=== PATIENT | male | born 1985 | race Two or more races ===

== ENCOUNTER 2025-04-19 07:30 | Inpatient (IN) | payer SELFPAY ==
[~2025-04-19] VITALS: Ht 185.4 cm; Wt 73.4 kg
--- NOTE | 2025-04-19 08:53 | ED.PDOC ---
History of Present Illness(SKN HPI Comments This is a 40 year-old male who presents to the ED with a chief complaint of wound to suprapubic abdominal region S/P insect bite X8 days ago. Patient reports a raised bump with pain, swelling as redness. Patient states symptoms have worsened over the past X3 days. Patient has no further complaints at this time and otherwise denies further associated symptoms of chest pain, abdominal pain, N/V, fever, or chills. Chief Complaint: Insect Bite Time Seen by MD: 08:45 History of Present Illness: Medications, Allergies Allergies: Uncoded Allergies: ANTS (Adverse Reaction, Unknown, 04/19/25) Information Source: Patient Mode of Arrival: Ambulatory Severity: Moderate Timing: Days Duration: Since onset Location: Abdomen Mechanism: Insect Wound Type: Puncture Associated Signs and Symptoms: Redness, Swelling Past Medical History PAST MEDICAL HISTORY: Denies Surgical History: Denies all surgeries Family History Family History: Reviewed,noncontributory to illness, No family hx of Cancer, No family hx of DM, No family hx of Heart charly, No family hx of HTN, No family hx ofKidney charly, No family hx of Liver charly, No family hx of Lung charly, No family hx of Stroke Social History Smoker: Non-Smoker Alcohol: Denies ETOH Use Drugs: Denies Drug Use Lives In: Home Constitutional: denies: chills, diaphoresis, fatigue, fever, malaise, sweats, weakness, others EENTM: denies: blurred vision, double vision, ear bleeding, ear discharge, ear drainage, ear pain, ear ringing, eye pain, eye redness, hearing loss, mouth pain, mouth swelling, nasal discharge, nose bleeding, nose congestion, nose pain, photophobia, tearing, throat pain, throat swelling, voice changes, others Respiratory: denies: cough, hemoptysis, orthopnea, SOB at rest, shortness of breath, SOB with excertion, stridor, wheezing, others Cardiovascular: denies: chest pain, dizzy spells, diaphoresis, Dyspnea on exertion, edema, irregular heart beat, left arm pain, lightheadedness, palpitations, PND, syncope, others Gastrointestinal: denies: abdomen distended, abdominal pain, blood streaked bowels, constipated, diarrhea, dysphagia, difficulty swallowing, hematemesis, melena, nausea, poor appetite, poor fluid intake, rectal bleeding, rectal pain, vomiting, others Genitourinary: denies: burning, dysuria, flank pain, frequency, hematuria, incontinence, penile discharge, penile sore, pain, testicle pain, testicle swel ling, urgency, others Neurological: denies: dizziness, fainting, headache, left sided numbness, left sided weakness, numbness, paresthesia, pre-existing deficit, right sided numbness, right sided weakness, seizure, speech problems, tingling, tremors, weakness, others Musculoskeletal: denies: back pain, gout, joint pain, joint swelling, muscle pain, muscle stiffness, neck pain, others Integumetry: reports: wounds, others (swelling, redness ); denies: bruises, change in color, change in hair/nails, dryness, laceration, lesions, lumps, rash Allergic/Immunocompromised: denies: Difficulty Healing, Frequent Infections, Hives, Itching, others Hematologic/Lymphatic: denies: anemia, blood clots, easy bleeding, easy bruising, swollen glands, others Endocrine: denies: excessive hunger, excessive sweating, excessive thirst, excessive urination, flushing, intolerance to cold, intolerance to heat, unexplained weight gain, unexplained weight loss, others Psychiatric: denies: anxiety, bipolar disorder, depression, hopeless, panic disorder, schizophrenia, sleepless, suicidal, others All Other Systems: Reviewed and Negative Physical Exam General Appearance: Moderate Distress HEENT: Normal ENT Inspection, Pharynx Normal, TMs Normal Neck: Full Range of Motion, Non-Tender, Normal, Normal Inspection Respiratory: Chest Non-Tender, Lungs Clear, No Accessory Muscle Use, No Respiratory Distress, Normal Breath Sounds Cardiovascular: No Edema, No JVD, No Murmur, No Gallop, Normal Peripheral Pulses, Regular Rate/Rhythm Breast Exam: Deferred Gastrointestinal: No Organomegaly, Non Tender, No Pulsatile Mass, Normal Bowel Sounds, Soft Genitalia: Deferred Pelvic: Deferred Rectal: Deferred Extremities: No calf tenderness, Normal capillary refill, Normal inspection, Normal range of motion, Non-tender, No pedal edema Musculoskeletal : Apperance: Normal Neurologic: Alert, kiln furniture saw tender II-XII nml as Tested, No Motor Deficits, Normal Affect, Normal Mood, No Sensory Deficits Cerebellar Function: Normal Reflexes: Normal Skin: Wounds (Suprapubic region) Peripheral Pulses: 3+ Radial (R), 3+ Radial (L) Lymphatic: No Adenopathy Was a procedure done? Was a procedure done?: No Differential Diagnosis (INTG) Differential Diagnosis: Abrasion, Hematoma, Insect Envenomation, Puncture Wound X-Ray, Labs, Meds, VS Vital Signs Date Time Temp Pulse Resp B/P (MAP) Pulse Ox O2 Delivery O2 Flow Rate FiO2 04/19/25 10:24 98 16 100 Room Air 04/19/25 10:24 98.4 98 16 138/75 (96) 100 98.4 04/19/25 07:40 98.4 87 16 126/78 98 98.4 Lab Test 04/19/25 10:35 Range/Units White Blood Count 16.9 H 4.4-10.8 10^3/uL Red Blood Count 4.75 4.5-5.90 10^6/uL Hemoglobin 14.5 13.5-17.5 g/dL Hematocrit 42.7 41.0-53.0 % Mean Corpuscular Volume 90.0 80.0-100.0 fL Mean Corpuscular Hemoglobin 30.6 28.0-32.0 pg Mean Corpuscular Hemoglobin Concent 33.9 32.0-36.0 g/dL Red Cell Distribution Width 12.7 11.8-14.3 % Platelet Count 303 140-450 10^3/uL Mean Platelet Volume 7.1 6.9-10.8 fL Neutrophils (%) (Auto) 87.3 H 37.0-80.0 % Lymphocytes (%) (Auto) 4.8 L 10.0-50.0 % Monocytes (%) (Auto) 7.4 0.0-12.0 % Eosinophils (%) (Auto) 0.3 0.0-7.0 % Basophils (%) (Auto) 0.2 0.0-2.0 % Neutrophils # (Auto) 14.8 H 1.6-8.6 10 ^3/uL Lymphocytes # (Auto) 0.8 0.4-5.4 10 ^3/uL Monocytes # (Auto) 1.3 0-1.3 10 ^3/uL Eosinophils # (Auto) 0.1 0-0.8 10 ^3/uL Basophils # (Auto) 0 0-0.2 10 ^3/uL Nucleated Red Blood Cells 0.0 % Prothrombin Time 11.1 9.3-11.8 sec Prothrombin Time INR 1.05 0.9-1.15 Activated Partial Thromboplast Time 31.9 24.5-34.5 SEC Sodium Level 141 136-145 mmol/L Potassium Level 3.5 3.5-5.1 mmol/L Chloride Level 107 98-107 mmol/L Carbon Dioxide Level 22 20-31 mmol/L Anion Gap 12 5-15 Blood Urea Nitrogen 7 L 9-23 mg/dL Creatinine 0.87 0.700-1.30 mg/dL Glomerular Filtration Rate Calc 110 >90 mL/min BUN/Creatinine Ratio 8.0 L 10.0-20.0 Serum Glucose 88 74-106 mg/dL Lactic Acid Level 1.3 0.4-2.0 mmol/L Calcium Level 8.9 8.7-10.4 mg/dL Total Bilirubin 1.4 H 0.2-1.0 mg/dL Aspartate Amino Transferase (AST) 20 13-40 U/L Alanine Aminotransferase (ALT) 21 7-40 U/L Alkaline Phosphatase 90 46-116 U/L Total Protein 7.0 5.7-8.2 g/dL Albumin 4.7 3.2-4.8 g/dL Current Medications Medications (Trade) Dose Ordered Sig/Stacey Route Start Time Stop Time Status Last Admin Vancomycin HCl 200 ml @ 200 mls/hr ONCE ONCE IV 04/19/25 09:00 04/19/25 09:59 DC 04/19/25 10:52 Cefepime HCl 50 ml @ 50 mls/hr ONCE ONCE IV 04/19/25 11:20 04/19/25 12:19 DC 04/19/25 12:41 Clindamycin Phosphate 50 ml @ 50 mls/hr ONCE ONCE IV 04/19/25 09:00 04/19/25 09:59 DC 04/19/25 10:29 Sodium Chloride 2,400 ml @ 2,400 mls/hr ONCE ONCE IV 04/19/25 10:30 04/19/25 11:29 DC 04/19/25 10:29 [facility] [id number] [place] [id number] Ph: [phone] DIAGNOSTIC IMAGING Diagnostic Imaging Report : [id number] Signed PATIENT: NOEMY ARREGUIN ACCT: [id number] UNIT: [id number] : 1985 LOC: ER ROOM / BED: / AGE / SEX: 40 / M ADM STATUS: REG ER SERVICE ORDERING PHYSICIAN: AURA SALVADOR MD PROCEDURE(s): CXRP - CHEST PORTABLE REASON: sob ORDER NUMBER(s): [id number], ACCESSION NUMBER(s): [id number] CLINICAL INFORMATION: Shortness of breath. TECHNIQUE: Single AP portable chest radiograph was obtained. COMPARISON: None FINDINGS: Lungs: Clear. Cardiac: Heart size is within normal limits. Pulmonary vasculature: Unremarkable. Mediastinum/waleska: Unremarkable. Bones: No acute osseous abnormality identified. Other: No other significant findings. IMPRESSION: No evidence of acute disease in the chest. Patient alert. Has a wound own suprapubic region. Entire suprapubic region red with an abscess that needs to be drained once antibiotic started. Vitals stable. Ambulating. Establish intravenous access. Was given fluids. Was given antibiotics pain Chest x-ray reviewed does not show any acute changes. Surgical consultation. Explained to the patient. Continue monitoring. Time of 1ST Reevaluation: 09:35 Reevaluation 1ST: Unchanged Patient Education/Counseling: Diagnosis, Treatment Family Education/Counseling: No Family Present SEPSIS Sepsis Screen Date sepsis recognized/suspect: Apr 19, 2025 Time Sepsis recognized/suspect: 0743 Recent Procedure: No On Antibiotic Therapy: No Respiratory Rate >20: No Heart Rate >90: No Temp<36 C (96.8 F) or >38.3 C: No SBP <90 or MAP <65 mmHG: No New Acute Mental Status Change: No Is the patient on CPAP, BIPAP,: No Physician Orders Chest Portable (04/19/25 08:48) Accucheck (04/19/25 08:48) Blood Culture (04/19/25 08:48) Notify Md If Map <65 Or Bp<90 (04/19/25 08:48) If Map<65 Start Vasopressor (04/19/25 08:48) Sepsis Reassesment After Fluid (04/19/25 09:48) Pharmacy Clarification: (04/19/25 23:59) Vital Signs Date Time Temp Pulse Resp B/P (MAP) Pulse Ox O2 Delivery O2 Flow Rate FiO2 04/19/25 10:24 98 16 100 Room Air 04/19/25 10:24 98.4 98 16 138/75 (96) 100 98.4 04/19/25 07:40 98.4 87 16 126/78 98 98.4 Laboratory Tests Test 04/19/25 10:35 Lactic Acid Level 1.3 mmol/L (0.4-2.0) White Blood Count 16.9 10^3/uL (4.4-10.8) H Medications Medications Dose Ordered Sig/Stacey Route Start Time Stop Time Status Last Admin Dose Admin Cefepime HCl 50 ml @ 50 mls/hr ONCE ONCE IV 04/19/25 11:20 04/19/25 12:19 DC 04/19/25 12:41 Clindamycin Phosphate 50 ml @ 50 mls/hr ONCE ONCE IV 04/19/25 09:00 04/19/25 09:59 DC 04/19/25 10:29 Sodium Chloride 2,400 ml @ 2,400 mls/hr ONCE ONCE IV 04/19/25 10:30 04/19/25 11:29 DC 04/19/25 10:29 Vancomycin HCl 200 ml @ 200 mls/hr ONCE ONCE IV 04/19/25 09:00 04/19/25 09:59 DC 04/19/25 10:52 Departure 1 Departure Time of Disposition: 17:42 Impression: Primary Impression: Sepsis, unspecified organism Qualified Codes: A41.9 - Sepsis, unspecified organism Additional Impressions: Abscess Cellulitis Qualified Codes: L03.90 - Cellulitis, unspecified Disposition: 09 ADMITTED INPATIENT Admit to: Med Surg Condition: Guarded Critical Care Note Critical Care Time?: No Stability Stability form required: No Heart Score Heart Score: Heart Score Response (Comments) Value History N/A 0 EKG N/A 0 Age N/A 0 Risk Factors N/A 0 Troponin N/A 0 Total 0 I personally scribed for AURA SALVADOR MD ([email or web address]) on 04/19/25 at 08:53. Electronically submitted by Juana Horta ([email or web address]). I personally scribed for AURA SALVADOR MD ([email or web address]) on 04/19/25 at 10:10. Electronically submitted by Juana Horta ([facility]). AURA SALVADOR MD Apr 19, 2025 08:53
[2025-04-19] MEDS ORDERED: LACTATED RINGER'S 2,400 ML IV ONE (09:00)
--- NOTE | 2025-04-19 09:14 | DVH ---
CLINICAL INFORMATION: Shortness of breath. TECHNIQUE: Single AP portable chest radiograph was obtained. COMPARISON: None FINDINGS: Lungs: Clear. Cardiac: Heart size is within normal limits. Pulmonary vasculature: Unremarkable. Mediastinum/waleska: Unremarkable. Bones: No acute osseous abnormality identified. Other: No other significant findings. IMPRESSION: No evidence of acute disease in the chest.
[2025-04-19] MEDS: CLINDAMYCIN 300MG IV 50 ML IV ONE (10:29)
[2025-04-19] MEDS: SODIUM CHLORIDE 0.9% 2,400 ML IV ONE (10:29)
[2025-04-19] MEDS: VANCOMYCIN 1GM/200ML PM 200 ML IV ONE (10:52)
[2025-04-19 10:53] LABS: Hematocrit 42.7 % (41.0-53.0); Hemoglobin 14.5 g/dL (13.5-17.5); Mean Corpuscular Hemoglobin 30.6 pg (28.0-32.0); Mean Corpuscular Volume 90.0 fL (80.0-100.0); Nucleated Red Blood Cells % 0.0 %
[2025-04-19 11:11] LABS: INR 1.05 (0.9-1.15); Partial Thromboplastin Time 31.9 SEC (24.5-34.5); Prothrombin Time 11.1 sec (9.3-11.8)
[2025-04-19 11:13] LABS: Alanine Aminotransferase 21 U/L (7-40); Albumin 4.7 g/dL (3.2-4.8); Alkaline Phosphatase 90 U/L (46-116); Anion Gap 12 (5-15); BUN/Creatinine Ratio 8.0 (10.0-20.0); Calcium 8.9 mg/dL (8.7-10.4); Carbon Dioxide 22 mmol/L (20-31); Glucose 88 mg/dL (74-106); Sodium 141 mmol/L (136-145); Total Protein 7.0 g/dL (5.7-8.2)
[2025-04-19 11:15] LABS: Bilirubin, Total 1.4 mg/dL (0.2-1.0); Blood Urea Nitrogen 7 mg/dL (9-23); Chloride 107 mmol/L (98-107); Potassium 3.5 mmol/L (3.5-5.1)
[2025-04-19] MEDS: SODIUM CHLORIDE 0.9% 1,000 ML IV SCH (11:30)
--- NOTE | 2025-04-19 11:45 | DVHHP2 ---
History of Present Illness Reason for Visit: Lower abdominal infection status post Insect bite History of Present Illness This is a 40-year-old male with no medical history presents to the ED with chief complaint of nonhealing wound to lower abdominal region status post insect bite eight days ago. Upon evaluation of patient he reports that his infection has progressively gotten worse within the last few days. The lower abdominal infected site is tender, inflamed, red and swollen. The patient denied recent travel, nor swimming in any body of water. He denies ever experiencing this in the past and due to this would like to be further evaluated and treated. Patient has no further complaints at this time and otherwise denies further associated symptoms. The patient will be admitted under hospitalist care to the medical-surgical unit. The patient denies fever, chills, headache, dizziness, palpitation, chest pain, nausea, vomiting, abdominal pain, diarrhea, constipation and other associated symptoms. The plan has been discussed with the patient in which all questions concerns have been addressed. Past Surgical History: None Family History: None Smoke: No ALCOHOL: none Drugs: None Lives: with Family Domestic Violence: Neg Review of Systems Skin: Other (Redness, swelling to lower abdominal region) Allergies: Uncoded Allergies: ANTS (Adverse Reaction, Unknown, 04/19/25) Medications Current Medications Medications Dose Ordered Sig/Stacey Route Start Time Stop Time Status Last Admin Dose Admin Cefepime HCl 50 ml @ 12.5 mls/hr Q8H IV 04/19/25 18:00 Sodium Chloride 1,000 ml @ 100 mls/hr Q10H IV 04/19/25 11:30 UNV Acetaminophen 650 mg Q6HP PRN PO 04/19/25 11:30 UNV Clindamycin Phosphate 50 ml @ 50 mls/hr Q8HR IV 04/19/25 14:00 UNV Exam Vital Signs Vital Signs Date Time Temp Pulse Resp B/P (MAP) Pulse Ox O2 Delivery O2 Flow Rate FiO2 04/19/25 10:24 98 16 100 Room Air 04/19/25 10:24 98.4 138/75 (96) 98.4 General Appearance: Alert, Oriented X3, Cooperative, No acute distress HEENT: Atraumatic, PERRLA, Mucous membr. moist/pink Respiratory: Clear to auscultation, Normal air movement Cardiovascular: Regular rate, Normal S1, Normal S2, No murmurs Abdominal: Normal bowel sounds, Soft, No hepatospenomegaly, No masses Extremities: No clubbing, No cyanosis, No edema, Normal pulses, No tenderness/swelling Neuro: Normal gait, Normal speech, Strength at 5/5 X4 ext, Normal tone, Sensation intact, Cranial nerves 3-12 NL Psych/Mental Status: Mental status NL Labs/Xrays Labs Test 04/19/25 10:35 Range/Units White Blood Count 16.9 H 4.4-10.8 10^3/uL Red Blood Count 4.75 4.5-5.90 10^6/uL Hemoglobin 14.5 13.5-17.5 g/dL Hematocrit 42.7 41.0-53.0 % Mean Corpuscular Volume 90.0 80.0-100.0 fL Mean Corpuscular Hemoglobin 30.6 28.0-32.0 pg Mean Corpuscular Hemoglobin Concent 33.9 32.0-36.0 g/dL Red Cell Distribution Width 12.7 11.8-14.3 % Platelet Count 303 140-450 10^3/uL Mean Platelet Volume 7.1 6.9-10.8 fL Neutrophils (%) (Auto) 87.3 H 37.0-80.0 % Lymphocytes (%) (Auto) 4.8 L 10.0-50.0 % Monocytes (%) (Auto) 7.4 0.0-12.0 % Eosinophils (%) (Auto) 0.3 0.0-7.0 % Basophils (%) (Auto) 0.2 0.0-2.0 % Neutrophils # (Auto) 14.8 H 1.6-8.6 10 ^3/uL Lymphocytes # (Auto) 0.8 0.4-5.4 10 ^3/uL Monocytes # (Auto) 1.3 0-1.3 10 ^3/uL Eosinophils # (Auto) 0.1 0-0.8 10 ^3/uL Basophils # (Auto) 0 0-0.2 10 ^3/uL Nucleated Red Blood Cells 0.0 % Prothrombin Time 11.1 9.3-11.8 sec Prothrombin Time INR 1.05 0.9-1.15 Activated Partial Thromboplast Time 31.9 24.5-34.5 SEC Sodium Level 141 136-145 mmol/L Potassium Level 3.5 3.5-5.1 mmol/L Chloride Level 107 98-107 mmol/L Carbon Dioxide Level 22 20-31 mmol/L Anion Gap 12 5-15 Blood Urea Nitrogen 7 L 9-23 mg/dL Creatinine 0.87 0.700-1.30 mg/dL Glomerular Filtration Rate Calc 110 >90 mL/min BUN/Creatinine Ratio 8.0 L 10.0-20.0 Serum Glucose 88 74-106 mg/dL Lactic Acid Level 1.3 0.4-2.0 mmol/L Calcium Level 8.9 8.7-10.4 mg/dL Total Bilirubin 1.4 H 0.2-1.0 mg/dL Aspartate Amino Transferase (AST) 20 13-40 U/L Alanine Aminotransferase (ALT) 21 7-40 U/L Alkaline Phosphatase 90 46-116 U/L Total Protein 7.0 5.7-8.2 g/dL Albumin 4.7 3.2-4.8 g/dL ORDERING PHYSICIAN: AURA SALVADOR MD PROCEDURE(s): CXRP - CHEST PORTABLE REASON: sob ORDER NUMBER(s): [id number], ACCESSION NUMBER(s): [id number] CLINICAL INFORMATION: Shortness of breath. TECHNIQUE: Single AP portable chest radiograph was obtained. COMPARISON: None FINDINGS: Lungs: Clear. Cardiac: Heart size is within normal limits. Pulmonary vasculature: Unremarkable. Mediastinum/waleska: Unremarkable. Bones: No acute osseous abnormality identified. Other: No other significant findings. IMPRESSION: No evidence of acute disease in the chest. ATED BY: ALL FOX DO DICTATED DATE/TIME: 04/19/25911 SIGNED BY: ALL FOX DO SIGNED DATE/TIME: 04/19/25911 CC: SEPSIS Sepsis Screen Date sepsis recognized/suspect: Apr 19, 2025 Time Sepsis recognized/suspect: 0743 Recent Procedure: No On Antibiotic Therapy: No Respiratory Rate >20: No Heart Rate >90: No Temp<36 C (96.8 F) or >38.3 C: No SBP <90 or MAP <65 mmHG: No New Acute Mental Status Change: No Is the patient on CPAP, BIPAP,: No Physician Orders Urinalysis (04/19/25 08:48) Chest Portable (04/19/25 08:48) Accucheck (04/19/25 08:48) Blood Culture (04/19/25 08:48) Cefepime 1gm/ 50ml (Maxipime 1gm/50ml) (04/19/25 11:20) Notify Md If Map <65 Or Bp<90 (04/19/25 08:48) If Map<65 Start Vasopressor (04/19/25 08:48) Sepsis Reassesment After Fluid (04/19/25 09:48) Pharmacy Clarification: (04/19/25 23:59) Cefepime 1gm/ 50ml (Maxipime 1gm/50ml) (04/19/25 18:00) Admit (04/19/25 11:24) 2 Gm Sodium Diet (04/19/25 Lunch) Sodium Chloride 0.9% (04/19/25 11:30) Complete Blood Count (04/20/25 04:00) Comprehensive Metabolic Panel (04/20/25 04:00) Condition: Fair (04/19/25 11:24) Acetaminophen Tablet (Tylenol Tablet) (04/19/25 11:30) BRP (04/19/25 11:24) Clindamycin 600mg Iv (Cleocin Iv) (04/19/25 14:00) Ceftriaxone Ivpb Rocephin (04/20/25 09:00) Vital Signs Date Time Temp Pulse Resp B/P (MAP) Pulse Ox O2 Delivery O2 Flow Rate FiO2 04/19/25 10:24 98 16 100 Room Air 04/19/25 10:24 98.4 98 16 138/75 (96) 100 98.4 04/19/25 07:40 98.4 87 16 126/78 98 98.4 Laboratory Tests Test 04/19/25 10:35 Lactic Acid Level 1.3 mmol/L (0.4-2.0) White Blood Count 16.9 10^3/uL (4.4-10.8) H Medications Medications Dose Ordered Sig/Stacey Route Start Time Stop Time Status Last Admin Dose Admin Clindamycin Phosphate 50 ml @ 50 mls/hr ONCE ONCE IV 04/19/25 09:00 04/19/25 09:59 DC 04/19/25 10:29 50 MLS/HR Sodium Chloride 2,400 ml @ 2,400 mls/hr ONCE ONCE IV 04/19/25 10:30 04/19/25 11:29 DC 04/19/25 10:29 2,400 MLS/HR Vancomycin HCl 200 ml @ 200 mls/hr ONCE ONCE IV 04/19/25 09:00 04/19/25 09:59 DC 04/19/25 10:52 200 MLS/HR Assessment/Plan Assessment/Plan Lower abdominal infection status post Insect bite--patient presents to ED with complaint of lower abdominal tenderness, swelling and redness status post insect bite eight days ago Progressively worse within the last few days Denies recent travel and swimming in body of water The patient received in the ER vancomycin, cefepime and clindamycin IV Admit to medical-surgical unit Reviewed CBC shows leukocytosis Lactic acid is normal Coags are normal BMP is normal Reviewed chest x-ray which is normal IV hydration IV antibiotic clindamycin and ceftriaxone Regular diet Reconcile home medication DVT prophylaxis not indicated patient ambulatory PUD prophylaxis not indicated no history of GERD Labs in a.m. Discussed plan of care with the patient in which all questions concerns have been addressed Plan discussed with: Patient My Orders Orders - SAIRA DE LEON Procedure Category Date Status Time Admit ADMIT 04/19/25 Transmitted 11:24 2 Gm Sodium Diet DIET 04/19/25 Transmitted Lunch Sodium Chloride 0.9% PHA 04/19/25 Logged 11:30 Complete Blood Count LAB 04/20/25 Verified 04:00 Comprehensive LAB 04/20/25 Verified Metabolic Panel 04:00 Condition: Fair NAKIA 04/19/25 In Process 11:24 Acetaminophen Tablet PHA 04/19/25 Logged (Tylenol Tablet) 11:30 BRP NAKIA 04/19/25 In Process 11:24 Clindamycin 600mg Iv PHA 04/19/25 Logged (Cleocin Iv) 14:00 Ceftriaxone Ivpb PHA 04/20/25 Transmitted Rocephin 09:00 Date of Service: Apr 19, 2025 Billing Provider: SAIRA DE LEON Common Visit Codes: [id number] INP/OBS CARE (HIGH) SAIRA DE LEON Apr 19, 2025 11:45
[2025-04-19] MEDS: CEFEPIME 1GM/ 50ML 50 ML IV ONE (12:41)
[2025-04-19] MEDS: HYDROcodone-ACET 10/325MG TAB PO ONE (16:00)
[2025-04-19] MEDS: CLINDAMYCIN 600MG IV 50 ML IV SCH (16:07)
[2025-04-19 16:27] LABS: Urine Protein, UAD Negative (Negative)
[2025-04-19 17:03] VITALS: BP 121/68; PULSE 87; RESP 18; TEMP 99.6; O2SAT 98
[2025-04-19] MEDS: cefTRIAXone 1GM/50ML D5W 50 ML IV SCH (18:00)
[2025-04-19] MEDS ORDERED: CEFEPIME 1GM/ 50ML 50 ML IV SCH (18:00)
[2025-04-19 20:00] VITALS: PULSE 88; RESP 17; O2SAT 97
[2025-04-19] MEDS: ACETAMINOPHEN 325 MG TAB PO PRN (22:13)
[2025-04-20] MEDS: HYDROcodone-ACET 5/325MG TAB PO PRN (00:41)
[2025-04-20 01:00] VITALS: BP 105/64; PULSE 69; RESP 17; TEMP 97.7; O2SAT 97
[2025-04-20 05:00] VITALS: BP 110/80; PULSE 72; RESP 17; O2SAT 99
[2025-04-20 07:56] LABS: Hematocrit 46.7 % (41.0-53.0); Hemoglobin 16.0 g/dL (13.5-17.5); Mean Corpuscular Hemoglobin 30.6 pg (28.0-32.0); Mean Corpuscular Volume 89.1 fL (80.0-100.0); Nucleated Red Blood Cells % 0.0 %
[2025-04-20 08:11] LABS: Alanine Aminotransferase 16 U/L (7-40); Albumin 4.6 g/dL (3.2-4.8); Alkaline Phosphatase 92 U/L (46-116); Anion Gap 10 (5-15); BUN/Creatinine Ratio 5.6 (10.0-20.0); Calcium 9.4 mg/dL (8.7-10.4); Carbon Dioxide 21 mmol/L (20-31); Chloride 107 mmol/L (98-107); Glucose 106 mg/dL (74-106); Potassium 4.1 mmol/L (3.5-5.1); Sodium 138 mmol/L (136-145); Total Protein 7.0 g/dL (5.7-8.2)
[2025-04-20 08:12] LABS: Bilirubin, Total 1.1 mg/dL (0.2-1.0); Blood Urea Nitrogen 5 mg/dL (9-23)
[2025-04-20 08:49] VITALS: BP 114/77; PULSE 74; RESP 16; TEMP 98.6; O2SAT 98
[2025-04-20] MEDS ORDERED: AUG875T PO (12:05)
[2025-04-20 13:00] VITALS: BP 109/68; PULSE 72; RESP 14; TEMP 98.7; O2SAT 98
[2025-04-20] MEDS ORDERED: MORPHINE SULFATE INJ 2 MG/ml SYRG IV PRN (16:45)
--- NOTE | 2025-04-20 16:47 | DVHPN2 ---
Assessment/Plan Assessment/Plan progress note 40 M admitted with ulcerated wound in pubic area. patient with no sig PNH, however reported have similar reaction to insect bite before, but did not know if he has any insect bite this time. Also had scrotal swelling with no tenderness. Sexually active with 1 female partner, used condoms, no hx of STI. physical exam AOx4 MAYNOR MMM clear breath sounds s1 s2 rrr abdomen soft suprapubic area with 3x3cm round ulcer with blood and pus draining, no bucky collection noted, tender normal penis scrotal swelling, welch negative, warm, nontender no le edema labs ekg imaging reviewed assessment and plan ulcerated lesion in groin celulitis? possible insect bite vs LGV r/o HIV r/o torsion (unlikely) ctap w con ceft and doxy wound culture G/C and HIV pain mgmt if any collection, will get surg consult for debridement diet reg dvt ppx ambulatory full code Plan discussed with: Patient My Orders Orders - PETE FLORES MD Procedure Category Date Status Time Wound Culture W/ Gs ALYSHA 04/20/25 Logged 13:06 Date of Service: Apr 20, 2025 Billing Provider: PETE FLORES MD Common Visit Codes: [id number] INP/OBS CARE(HIGH) PETE FLORES MD Apr 20, 2025 16:47
[2025-04-20 16:51] VITALS: BP 105/71; PULSE 86; RESP 18; TEMP 98.5; O2SAT 96
[2025-04-20] MEDS: DOXYCYCLINE 100MG/100ML 100 ML IV SCH (18:05)
[2025-04-20] MEDS: KETOROLAC TROMETH 30 MG/ML 1ML VIAL IV PRN (20:14)
[2025-04-20 21:00] VITALS: BP 109/75; PULSE 72; RESP 18; TEMP 98.1; O2SAT 99
[2025-04-20 21:19] LABS: Urine Protein, UAD Negative (Negative)
[2025-04-20] MEDS: ACETAMINOPHEN 325 MG TAB PO SCH (21:59)
[2025-04-21] VITALS (8 sets, daily range): BP systolic 110–117; BP diastolic 56–82; PULSE 52–92; RESP 18–20; TEMP 97.9–98.8; O2SAT 98–100
[2025-04-21 07:41] LABS: Hematocrit 46.2 % (41.0-53.0); Hemoglobin 16.1 g/dL (13.5-17.5); Mean Corpuscular Hemoglobin 31.1 pg (28.0-32.0); Mean Corpuscular Volume 88.9 fL (80.0-100.0); Nucleated Red Blood Cells % 0.1 %
[2025-04-21 08:02] LABS: Alanine Aminotransferase 15 U/L (7-40); Albumin 4.5 g/dL (3.2-4.8); Alkaline Phosphatase 89 U/L (46-116); Anion Gap 10 (5-15); BUN/Creatinine Ratio 12.4 (10.0-20.0); Blood Urea Nitrogen 11 mg/dL (9-23); Calcium 9.7 mg/dL (8.7-10.4); Carbon Dioxide 25 mmol/L (20-31); Chloride 106 mmol/L (98-107); Glucose 91 mg/dL (74-106); Magnesium 2.2 mg/dL (1.6-2.6); Potassium 4.1 mmol/L (3.5-5.1); Sodium 141 mmol/L (136-145); Total Protein 6.9 g/dL (5.7-8.2)
[2025-04-21 08:03] LABS: Bilirubin, Total 0.7 mg/dL (0.2-1.0)
--- NOTE | 2025-04-21 10:07 | DVH ---
CT CT AB PEL WITH IV CON ONLY INDICATION: abd wall abscess EXAM DATE: 04/21/2025 09:10 AM COMPARISON: None RADIATION DOSE: CTDIvol: 8.72 mGy, DLP: 532.59 mGy*cm PROCEDURE: Helical CT images were obtained of the abdomen and pelvis with IV contrast Sagittal and co falguni reconstructions are provided. ORAL CONTRAST: None. ADDITIONAL IMAGES / REFORMATS: None All CT s cans at this medical facility are performed using dose modulation techniques as appropriate to a perf ormed exam including the following: Automated exposure control was utilized; adjustment of the MA and /or KV according to patient size; and use of iterative reconstruction technique. FINDINGS: LUNG BASE: Normal. LIVER: 4.7 cm right posterior hepatic lesion with nodular peripheral enhancement is most consistent w ith a hemangioma. GALLBLADDER AND BILIARY TREE: No calcified gallstones. Normal caliber wall. No intra- or extrahepatic biliary ductal dilation. PANCREAS: Normal. SPLEEN: Normal. BOWEL: Normal. Normal appendix. ADRENALS: Normal. KIDNEYS AND URETER: Normal. BLADDER: Normal. REPRODUCTIVE ORGANS: Normal. LYMPH NODES:No lymphadenopathy. PERITONEUM: No ascites or free air. No other fluid collection. VESSELS: Scattered atherosclerotic calcifications are noted. RETROPERITONEUM: Normal. ABDOMINAL WALL: Low anterior abdominal wall fat stranding with 2.7 cm area of phlegmon, but no absces s. BONES: Scattered osseous degenerative changes are noted. IMPRESSION: No acute intraabdominal abnormality. Low anterior abdominal wall fat stranding with 2.7 cm area of phlegmon, but no abscess. 4.7 cm right posterior hepatic lesion with nodular peripheral enhancement is most consistent with a h emangioma.
--- NOTE | 2025-04-21 15:17 | DVHPN2 ---
Assessment/Plan Assessment/Plan progress note 40 M admitted with ulcerated wound in pubic area. patient with no sig PNH, however reported have similar reaction to insect bite before, but did not know if he has any insect bite this time. Also had scrotal swelling with no tenderness. Sexually active with 1 female partner, used condoms, no hx of STI. seen today. improving with iv abx, no collection on ct. conservativfe management, wpound care physical exam AOx4 MAYNOR MMM clear breath sounds s1 s2 rrr abdomen soft suprapubic area with 3x3cm round ulcer with blood and pus draining, no bucky collection noted, tender normal penis scrotal swelling, welch negative, warm, nontender no le edema labs ekg imaging reviewed assessment and plan ulcerated lesion in groin celulitis? possible insect bite vs LGV r/o HIV r/o torsion (unlikely) ctap w con ceft and doxy wound culture G/C and HIV pain mgmt if any collection, will get surg consult for debridement diet reg dvt ppx ambulatory full code Plan discussed with: Patient My Orders Orders - PETE FLORES MD Procedure Category Date Status Time Chlamydia/Gc LAB 04/20/25 In Process Amplification 16:39 Doxycycline PHA 04/20/25 In Process 100mg/100ml 16:45 Acetaminophen Tablet PHA 04/20/25 In Process (Tylenol Tablet) 22:00 Ketorolac Injection PHA 04/20/25 In Process (Toradol Injection) 16:45 Morphine Sulfate PHA 04/20/25 In Process Injection 16:45 Ct Ab Pel With Iv Con CT 04/21/25 Resulted Only 16:39 Date of Service: Apr 21, 2025 Billing Provider: PETE FLORES MD Common Visit Codes: [id number] INP/OBS CARE(HIGH) PETE FOLRES MD Apr 21, 2025 15:17
[2025-04-22 01:00] VITALS: BP 108/64; PULSE 72; RESP 20; TEMP 97.5; O2SAT 99
[2025-04-22 05:00] VITALS: BP 111/71; PULSE 66; RESP 20; TEMP 97.8; O2SAT 98
[2025-04-22 06:51] LABS: Chloride 106 mmol/L (98-107); Potassium 4.2 mmol/L (3.5-5.1); Sodium 140 mmol/L (136-145)
[2025-04-22 06:52] LABS: Anion Gap 9 (5-15); Carbon Dioxide 25 mmol/L (20-31)
[2025-04-22 06:53] LABS: Calcium 9.6 mg/dL (8.7-10.4)
[2025-04-22 06:57] LABS: BUN/Creatinine Ratio 13.2 (10.0-20.0); Blood Urea Nitrogen 12 mg/dL (9-23); Glucose 94 mg/dL (74-106)
[2025-04-22 07:23] LABS: Hematocrit 48.6 % (41.0-53.0); Hemoglobin 16.8 g/dL (13.5-17.5); Mean Corpuscular Hemoglobin 30.7 pg (28.0-32.0); Mean Corpuscular Volume 89.0 fL (80.0-100.0); Nucleated Red Blood Cells % 0.3 %
[2025-04-22 09:00] VITALS: BP 119/78; PULSE 56; RESP 20; TEMP 98; O2SAT 98
[2025-04-22 13:00] VITALS: BP 104/68; PULSE 59; RESP 19; TEMP 97.8; O2SAT 99
--- NOTE | 2025-04-22 14:41 | DVHINCON2 ---
Date of service: Apr 22, 2025 Family History: Depression G8 MOTHER Malignant neoplasm of breast G8 MOTHER Allergies: Uncoded Allergies: ANTS (Adverse Reaction, Unknown, 04/19/25) Home Meds Active Scripts Amoxicillin & Pot Clavulanate (AUGMENTIN TABLET) 875 Mg Tb, 875 MG PO BID for 7 Days, #14 TAB Prov:PETE FLORES MD 04/20/25 Vital Signs Vital Signs Date Time Temp Pulse Resp B/P (MAP) Pulse Ox O2 Delivery O2 Flow Rate FiO2 04/22/25 13:00 97.8 59 19 104/68 (80) 99 97.8 04/22/25 08:30 Room Air* 0 21 Labs/Diagnostic Data Labs Test 04/22/25 05:48 04/21/25 06:23 04/20/25 20:30 04/20/25 07:19 Range/Units White Blood Count 8.1 4.4-10.8 10^3/uL Red Blood Count 5.47 4.5-5.90 10^6/uL Hemoglobin 16.8 13.5-17.5 g/dL Hematocrit 48.6 41.0-53.0 % Mean Corpuscular Volume 89.0 80.0-100.0 fL Mean Corpuscular Hemoglobin 30.7 28.0-32.0 pg Mean Corpuscular Hemoglobin Concent 34.5 32.0-36.0 g/dL Red Cell Distribution Width 12.8 11.8-14.3 % Platelet Count 434 140-450 10^3/uL Mean Platelet Volume 7.3 6.9-10.8 fL Neutrophils (%) (Auto) 62.0 37.0-80.0 % Lymphocytes (%) (Auto) 24.1 10.0-50.0 % Monocytes (%) (Auto) 8.5 0.0-12.0 % Eosinophils (%) (Auto) 4.4 0.0-7.0 % Basophils (%) (Auto) 1.0 0.0-2.0 % Neutrophils # (Auto) 5.0 1.6-8.6 10 ^3/uL Lymphocytes # (Auto) 2.0 0.4-5.4 10 ^3/uL Monocytes # (Auto) 0.7 0-1.3 10 ^3/uL Eosinophils # (Auto) 0.4 0-0.8 10 ^3/uL Basophils # (Auto) 0.1 0-0.2 10 ^3/uL Nucleated Red Blood Cells 0.3 % Sodium Level 140 136-145 mmol/L Potassium Level 4.2 3.5-5.1 mmol/L Chloride Level 106 98-107 mmol/L Carbon Dioxide Level 25 20-31 mmol/L Anion Gap 9 5-15 Blood Urea Nitrogen 12 9-23 mg/dL Creatinine 0.91 0.700-1.30 mg/dL Glomerular Filtration Rate Calc 108 >90 mL/min BUN/Creatinine Ratio 13.2 10.0-20.0 Serum Glucose 94 74-106 mg/dL Calcium Level 9.6 8.7-10.4 mg/dL Phosphorus Level 3.4 2.4-5.1 mg/dL Magnesium Level 2.2 1.6-2.6 mg/dL Total Bilirubin 0.7 0.2-1.0 mg/dL Aspartate Amino Transferase (AST) 15 13-40 U/L Alanine Aminotransferase (ALT) 15 7-40 U/L Alkaline Phosphatase 89 46-116 U/L Total Protein 6.9 5.7-8.2 g/dL Albumin 4.5 3.2-4.8 g/dL Urine Color Light-yellow Yellow Urine Clarity Clear Clear Urine pH 6.5 5.0-9.0 Urine Specific [place] 1.011 1.001-1.035 Urine Protein Negative Negative Urine Ketones Negative Negative Urine Blood Negative Negative /uL Urine Nitrite Negative Negative Urine Bilirubin Negative Negative Urine Urobilinogen Normal Negative mg/dL Urine Leukocyte Esterase Negative Negative /uL Urine Glucose Normal Normal mg/dL HIV (1&2) Antibody Negative Negative Test 04/19/25 10:35 Range/Units Prothrombin Time 11.1 9.3-11.8 sec Prothrombin Time INR 1.05 0.9-1.15 Activated Partial Thromboplast Time 31.9 24.5-34.5 SEC Lactic Acid Level 1.3 0.4-2.0 mmol/L Microbiology Date/Time Source Procedure Growth Status 04/20/25 13:00 Groin Gram Stain - Final Complete 04/20/25 13:00 Wound Culture - Final Methicillin Resistant S.aureus Complete 04/19/25 10:35 Blood Blood Culture - Preliminary NO GROWTH AFTER 72 HOURS OF INCUBATION. Resulted Assessment [id number] AFEBRILE VSS NON HEALING WOUND RLQ ABD WALL SEC TO INSECT BITE CELLULITIS RESOLVING NO CLINICAL ABSCESS CONTINUE CLOSE OBSERVATION IV ABX WOUND CARE NURSE AT BEDSIDE Plan discussed with: Patient ELOISA SALGADO MD Apr 22, 2025 14:41
--- NOTE | 2025-04-22 14:45 | DVHPN2 ---
Assessment/Plan Assessment/Plan progress note 40 M admitted with ulcerated wound in pubic area. patient with no sig PNH, however reported have similar reaction to insect bite before, but did not know if he has any insect bite this time. Also had scrotal swelling with no tenderness. Sexually active with 1 female partner, used condoms, no hx of STI. seen today. seen by surg, no intervention, 1 day iv will switch to po after physical exam AOx4 MAYNOR MMM clear breath sounds s1 s2 rrr abdomen soft suprapubic area with 3x3cm round ulcer with blood and pus draining, no bucky collection noted, tender normal penis scrotal swelling, welch negative, warm, nontender no le edema labs ekg imaging reviewed assessment and plan ulcerated lesion in groin celulitis? possible insect bite vs LGV r/o HIV r/o torsion (unlikely) ctap w con ceft and doxy wound culture G/C and HIV pain mgmt surg eval appreciated diet reg dvt ppx ambulatory full code Plan discussed with: Patient My Orders Orders - PETE FLORES MD Procedure Category Date Status Time Cleanse Wound With NAKIA 04/21/25 In Process Wound Clean 11:19 * Dietary Consult CONS 04/21/25 Transmitted 16:40 * Surgical Consult CONS 04/22/25 Verified Date of Service: Apr 22, 2025 Billing Provider: PETE FLORES MD Common Visit Codes: [id number] INP/OBS CARE(HIGH) PETE FLORES MD Apr 22, 2025 14:45
--- NOTE | 2025-04-22 15:22 | DVHINCON2 ---
DATE OF CONSULTATION: 04/22/2025 HISTORY OF PRESENT ILLNESS: This patient is 40 years old, coming in with nonhealing wound to his right lower abdominal wall status post insect bite 8 days ago and it appears that his swelling has gone down and his infection has improved as well. No fever or chills. No nausea or vomiting. No constipation or diarrhea. No hematemesis or melena. No bleeding per rectum. PAST MEDICAL HISTORY: No diabetes or hypertension. PAST SURGICAL HISTORY: Nothing significant. PHYSICAL EXAMINATION: VITAL SIGNS: Afebrile, stable signs. HEENT: With no evidence of pallor, cyanosis, or jaundice. NECK: Supple and nontender. No thyromegaly or lymphadenopathy. CHEST AND LUNGS: Clear. HEART: Within normal limits. ABDOMEN: Soft. He has a nonhealing wound with cellulitis and infection in the right lower abdomen above the groin crease and no drainable abscess is seen. NEUROLOGIC: Not assessed. EXTREMITIES: Unremarkable. CLINICAL IMPRESSION: Nonhealing wound, right lower abdomen, abdominal wall. PLAN: To continue close observation, intravenous antibiotics and wound care. Rafael Almodovar MD RG/EKT/SADI TID: [id number] RECEIPT: [id number] cc: ISIDRO Fernandez
[2025-04-22 17:00] VITALS: BP 113/78; PULSE 52; RESP 19; TEMP 98.6; O2SAT 99
[2025-04-22 21:00] VITALS: BP 118/77; PULSE 62; RESP 18; TEMP 97.6; O2SAT 99
[2025-04-23 01:00] VITALS: BP 112/69; PULSE 55; RESP 18; TEMP 98; O2SAT 99
[2025-04-23 01:06] LABS: Chlamydia Trachomatis, NAA Negative (Negative); Neisseria gonorrhoeae, NAA Negative (Negative)
[2025-04-23 05:00] VITALS: BP 134/73; PULSE 73; RESP 18; TEMP 98; O2SAT 99
[2025-04-23 08:30] VITALS: BP 115/75; PULSE 68; RESP 16; TEMP 97.2; O2SAT 98
[2025-04-23] MEDS ORDERED: SACC250C PO (11:28)
[2025-04-23] MEDS ORDERED: CLIN1CAP70 PO (11:28)
[2025-04-23 11:55] VITALS: BP 115/75; PULSE 68; RESP 16; TEMP 36.2; O2SAT 98
--- NOTE | 2025-04-23 19:31 | DVHDS2 ---
Discharge Summary Date of Admission Apr 19, 2025 at 11:24 Date of Discharge: Apr 23, 2025 Labs/Diagnostic Data: Laboratory Results Test 04/22/25 05:48 04/21/25 06:23 04/20/25 20:30 04/20/25 07:19 White Blood Count 8.1 10^3/uL (4.4-10.8) Red Blood Count 5.47 10^6/uL (4.5-5.90) Hemoglobin 16.8 g/dL (13.5-17.5) Hematocrit 48.6 % (41.0-53.0) Mean Corpuscular Volume 89.0 fL (80.0-100.0) Mean Corpuscular Hemoglobin 30.7 pg (28.0-32.0) Mean Corpuscular Hemoglobin Concent 34.5 g/dL (32.0-36.0) Red Cell Distribution Width 12.8 % (11.8-14.3) Platelet Count 434 10^3/uL (140-450) Mean Platelet Volume 7.3 fL (6.9-10.8) Neutrophils (%) (Auto) 62.0 % (37.0-80.0) Lymphocytes (%) (Auto) 24.1 % (10.0-50.0) Monocytes (%) (Auto) 8.5 % (0.0-12.0) Eosinophils (%) (Auto) 4.4 % (0.0-7.0) Basophils (%) (Auto) 1.0 % (0.0-2.0) Neutrophils # (Auto) 5.0 10 ^3/uL (1.6-8.6) Lymphocytes # (Auto) 2.0 10 ^3/uL (0.4-5.4) Monocytes # (Auto) 0.7 10 ^3/uL (0-1.3) Eosinophils # (Auto) 0.4 10 ^3/uL (0-0.8) Basophils # (Auto) 0.1 10 ^3/uL (0-0.2) Nucleated Red Blood Cells 0.3 % Sodium Level 140 mmol/L (136-145) Potassium Level 4.2 mmol/L (3.5-5.1) Chloride Level 106 mmol/L (98-107) Carbon Dioxide Level 25 mmol/L (20-31) Anion Gap 9 (5-15) Blood Urea Nitrogen 12 mg/dL (9-23) Creatinine 0.91 mg/dL (0.700-1.30) Glomerular Filtration Rate Calc 108 mL/min (>90) BUN/Creatinine Ratio 13.2 (10.0-20.0) Serum Glucose 94 mg/dL (74-106) Calcium Level 9.6 mg/dL (8.7-10.4) Phosphorus Level 3.4 mg/dL (2.4-5.1) Magnesium Level 2.2 mg/dL (1.6-2.6) Total Bilirubin 0.7 mg/dL (0.2-1.0) Aspartate Amino Transferase (AST) 15 U/L (13-40) Alanine Aminotransferase (ALT) 15 U/L (7-40) Alkaline Phosphatase 89 U/L (46-116) Total Protein 6.9 g/dL (5.7-8.2) Albumin 4.5 g/dL (3.2-4.8) Urine Color Light-yellow (Yellow) Urine Clarity Clear (Clear) Urine pH 6.5 (5.0-9.0) Urine Specific [place] 1.011 (1.001-1.035) Urine Protein Negative (Negative) Urine Ketones Negative (Negative) Urine Blood Negative /uL (Negative) Urine Nitrite Negative (Negative) Urine Bilirubin Negative (Negative) Urine Urobilinogen Normal mg/dL (Negative) Urine Leukocyte Esterase Negative /uL (Negative) Urine Glucose Normal mg/dL (Normal) Chlamydia trachomatis ([place]) Negative (Negative) Neisseria gonorrhoeae ([place]) Negative (Negative) HIV (1&2) Antibody Negative (Negative) Test 04/19/25 10:35 Prothrombin Time 11.1 sec (9.3-11.8) Prothrombin Time INR 1.05 (0.9-1.15) Activated Partial Thromboplast Time 31.9 SEC (24.5-34.5) Lactic Acid Level 1.3 mmol/L (0.4-2.0) Other Laboratory Tests 04/22/25 05:48 Brief Hx & Hospital Course: 1 M admitted with ulcerated wound in pubic area. patient with no sig PNH, however reported have similar reaction to insect bite before, but did not know if he has any insect bite this time. Also had scrotal swelling with no tenderness. Sexually active with 1 female partner, used condoms, no hx of STI. wound improved after abx, wound culture showed MRSA. pending HIV and chlamydia. seen by surgery, no intervention surgically. ruled out torsion by clinical exam and improvement. dc with clinda and florastor. nd clinic Condition at Discharge: Good Final Diagnosis/Problems List MRSA celulitis and furunculosis possible insect bite vs LGV r/o HIV uled out torsion (unlikely) Discharge Disposition: Home Discharge Instruct/Medications Diet: Regular Activity: No Restrictions, As Tolerated Medications: clinda florastor dc clinic surg clinic Scheduled Clindamycin Hcl (Clindamycin Hcl), 1 CAP PO TID Yeast (S. Boulardii)(S. Cerevi (Florastor), 250 MG PO DAILY Discharge Statement: "Patient was advised to return to the ER or call 911 if any headaches, dizziness, shortness of breath, chest pain, abdominal pain, bleeding, fevers, or worsening of medical condition. Patient was counseled about treatment plan, medications, possible side effects, patientverbalized understanding. All questions were answered to the best of my ability. This discharge took greater then 30 minutes in planning, reviewing documentation, counseling the patient, and discussing with other team members." ASSESSMENT ASSESSMENT Assessment celulitis with ulcer, MRSA Date of Service: Apr 23, 2025 Billing Provider: PETE FLORES MD Common Visit Codes: [id number] DISCH DAY >30min PETE FLORES MD Apr 23, 2025 19:31
== END 2025-04-23 14:30 | disposition home or self-care (01) | DRG 603 ==
LOC: ER 07:30 → OVERFLOW 11:24 → CENTRAL 18:44
PROVIDERS: ADMIT Student in an Organized Health Care Education/Training Program; ATTEND Student in an Organized Health Care Education/Training Program
DX: L03.311 Cellulitis of abdominal wall (principal); L98.498 Non-pressure chronic ulcer of skin of other sites with other specified severity; N50.89 Other specified disorders of the male genital organs; L02.221 Furuncle of abdominal wall; S30.861A Insect bite (nonvenomous) of abdominal wall, initial encounter; S31.103A Unspecified open wound of abdominal wall, right lower quadrant without penetration into peritoneal cavity, initial encounter; Z81.8 Family history of other mental and behavioral disorders; Z80.3 Family history of malignant neoplasm of breast; Z79.2 Long term (current) use of antibiotics; X58.XXXA Exposure to other specified factors, initial encounter; Y93.89 Activity, other specified; Y92.89 Other specified places as the place of occurrence of the external cause; Y99.8 Other external cause status; Z79.899 Other long term (current) drug therapy
CPT/HCPCS: 36415; 71045; 74177; 80048; 80053; 81003; 83605; 83735; 84100; 85025; 85610; 85730; 86703; 87040; 87077; 87186; 87205; G0378; J1885; J3490